=== PATIENT | male | born 1980 | race Caucasian/White ===

== ENCOUNTER → 2022-12-11 10:21 | Outpatient (CLI) | payer SELFPAY ==
[2022-12-11 12:13] LABS: Rubella Antibody IgG 27.9 IU/mL (>15)
[2022-12-12 04:58] LABS: Hepatitis B Surf AB Quant >1000.0 mIU/mL (Immunity>9.9)
[2022-12-12 08:09] LABS: Rubeola Measles IgG < 13.5 AU/mL (Immune >16.4); Varicella IgG Antibody 922 index (Immune >165)
[2022-12-12 13:36] LABS: Mumps Virus IgG Antibody 79.1 AU/mL (Immune >10.9)
[2022-12-15 13:47] LABS: QuantiFERON Mitogen Value >10.00 IU/mL (.); QuantiFERON Nil Value 0.04 IU/mL (.); QuantiFERON TB Gold Plus Negative (Negative); QuantiFERON TB2 Ag Value 0.09 IU/mL (.)
== END ==
DX: Z01.84 Encounter for antibody response examination (principal)
CPT/HCPCS: 36415; 86480; 86706; 86735; 86762; 86765; 86787

== ENCOUNTER → 2023-08-02 08:45 | Outpatient (CLI) | payer OTHER, SELFPAY ==
[2023-08-02 10:05] LABS: Hemoglobin A1C% w Est Avg Glu 5.9 % (4.0-6.0)
[2023-08-02 10:08] LABS: Add Manual Diff / Slide Review NO; Basophils Absolute Auto 0 /uL (0-100); Basophils Percent Auto 0.4 % (0-2); Eosinophils Absolute Auto 100 /uL (0-450); Eosinophils Percent Auto 1.8 % (2-4); Hemoglobin 15.4 g/dL (13.5-17.5); Lymphocytes Absolute Auto 1900 /uL (1100-4500); Lymphocytes Percent Auto 30.7 % (25-40); Mean Corpuscular HGB Conc 34.9 % (30-36); Mean Corpuscular Hemoglobin 31.3 PG (26-34); Mean Corpuscular Volume 89.7 fL (80-100); Monocytes Absolute Auto 500 /uL (0-900); Monocytes Percent Auto 8.4 % (3-14); Neutrophils Absolute Auto 3500 /uL (1500-7000); Neutrophils Percent Auto 58.7 % (50-75); Platelet Count 240 X10^3/uL (150-400); Red Blood Cell Count 4.91 X10^6/uL (4.5-5.9); White Blood Cell Count 6.1 X10^3/uL (4.5-11.0)
[2023-08-02 10:26] LABS: Alanine Aminotransferase 60 IU/L (<50); Albumin 4.9 g/dL (3.5-5.0); Albumin Globulin Ratio 1.6 (1.0-2.8); Alkaline Phosphatase 85 U/L (38-126); Aspartate Aminotransferase 52 IU/L (17-59); Bilirubin Total 0.7 mg/dL (0.2-1.3); Blood Urea Nitrogen 16 mg/dL (9-20); Calcium 9.6 mg/dL (8.4-10.2); Carbon Dioxide 24 mmol/L (22-32); Chloride 109 mmol/L (98-107); Cholesterol 220 mg/dL (140-199); Estimated Glomerular Filt Rate > 60 mL/min (>60); Glucose 100 mg/dL (70-100); HDL Cholesterol 33 mg/dL (40-60); HEMOLYSIS < 15 (0-50); LDL Cholesterol Calculated 137 mg/dL (<100); Potassium 4.4 mmol/L (3.4-5.1); Sodium 142 mmol/L (137-145); Total Protein 7.9 g/dL (6.3-8.2); Triglycerides 250 mg/dL (35-150)
== END ==
PROVIDERS: PCP Family Medicine; Referring Provider Family Medicine; Visit Provider Family Medicine
DX: Z00.00 Encounter for general adult medical examination without abnormal findings (principal); R00.2 Palpitations; L65.9 Nonscarring hair loss, unspecified
CPT/HCPCS: 36415; 80053; 80061; 83036; 85025

== ENCOUNTER → 2023-11-03 06:49 | Outpatient (CLI) | payer OTHER, SELFPAY ==
[2023-11-03 08:09] LABS: Hemoglobin A1C% w Est Avg Glu 5.5 % (4.0-6.0)
[2023-11-03 08:22] LABS: Cholesterol 126 mg/dL (140-199); HDL Cholesterol 31 mg/dL (40-60); LDL Cholesterol Calculated 56 mg/dL (<100); Triglycerides 197 mg/dL (35-150)
[2023-11-03 08:52] LABS: Prostate Specific Antigen Scrn 0.266 ng/mL (0.1-4.0)
== END ==
PROVIDERS: PCP Family Medicine; Referring Provider Family Medicine; Visit Provider Family Medicine
DX: E78.2 Mixed hyperlipidemia (principal); R73.01 Impaired fasting glucose; Z12.5 Encounter for screening for malignant neoplasm of prostate
CPT/HCPCS: 36415; 80061; 83036; G0103

== ENCOUNTER → 2024-01-31 07:36 | Outpatient (CLI) | payer OTHER, SELFPAY ==
--- NOTE | 2024-01-31 07:36 | DI.NM.S_ITS ---
PROCEDURE: NM EXERCISE TREADMILL NON NUC COMPARISON: None. INDICATIONS: chest pain FINDINGS: Patient exercised per the standard Sawyer protocol. Total exercise time was 10 minutes and 3 seconds. Test was terminated secondary to fatigue. Maximal heart rate obtained is 194 bpm which is 111% of max impacted heart rate. Maximum blood pressure was 188/[place] [address]. LINDA +12%. 12.8 METS. No ischemic changes noted. Frequent PVCs noted in the early stress phase but resolved at peak stress. Mild chest pains voiced during the second stage of the stress test with resolution at peak stress. Normal heart rate and blood pressure response to exercise. IMPRESSION: 1. Equivocal exercise treadmill stress test due to presence of exercise-induced chest pain. 2. Below average exercise tolerance. Dictated by: Spencer Madrigal M.D. on 01/31/2024 at 16:51 Approved by: Spencer Madrigal M.D. on 01/31/2024 at 16:53
== END ==
PROVIDERS: PCP Family Medicine; Referring Provider Family Medicine; Visit Provider Family Medicine
DX: R07.89 Other chest pain (principal)
CPT/HCPCS: 93017

== ENCOUNTER → 2024-03-06 09:23 | Outpatient (CLI) | payer OTHER, SELFPAY ==
[2024-03-06 10:35] LABS: Influenza A - CEPHEID Flu A NEGATIVE (NEGATIVE); Influenza B - CEPHEID Flu B NEGATIVE (NEGATIVE); Respiratory Syncytial Virus POSITIVE (Negative)
[2024-03-06 10:36] LABS: COVID-19 CEPHEID 4-PLEX PCR Negative (Negative)
== END ==
PROVIDERS: PCP Family Medicine; Visit Provider Nurse Practitioner Family
DX: R05.1 Acute cough (principal); J02.9 Acute pharyngitis, unspecified
CPT/HCPCS: 0241U; 87070

== ENCOUNTER → 2024-09-01 08:45 | Outpatient (CLI) | payer OTHER, SELFPAY ==
[2024-09-01 10:12] LABS: Alanine Aminotransferase 48 IU/L (<50); Albumin 5.1 g/dL (3.5-5.0); Albumin Globulin Ratio 1.6 (1.0-2.8); Alkaline Phosphatase 103 U/L (38-126); Aspartate Aminotransferase 48 IU/L (17-59); BUN Creatinine Ratio 16.3 (6-22); Bilirubin Total 0.8 mg/dL (0.2-1.3); Blood Urea Nitrogen 14 mg/dL (9-20); Calcium 9.9 mg/dL (8.4-10.2); Carbon Dioxide 24 mmol/L (22-32); Chloride 106 mmol/L (98-107); Cholesterol 150 mg/dL (140-199); Estimated Glomerular Filt Rate > 60 mL/min (>60); Globulin 3.2 g/dL (1.7-4.1); Glucose 108 mg/dL (70-99); HDL Cholesterol 32 mg/dL (40-60); HEMOLYSIS < 15 (0-50); LDL Cholesterol Calculated 84 mg/dL (<100); Potassium 4.8 mmol/L (3.4-5.1); Sodium 140 mmol/L (137-145); Total Protein 8.3 g/dL (6.3-8.2); Triglycerides 168 mg/dL (35-150)
[2024-09-01 10:18] LABS: Hemoglobin A1C% w Est Avg Glu 5.5 % (4.0-6.0)
[2024-09-01 11:11] LABS: HIV 1 & 2 Ab/Ag 4th Gen Combo NEGATIVE (NEGATIVE); Hep C Virus Ab w/Reflex Quant NEGATIVE s/c (NEGATIVE)
[2024-09-01 15:31] LABS: TSH w/ Reflex to FT4 1.04 uIU/mL (0.47-4.68)
== END ==
PROVIDERS: PCP Family Medicine; Referring Provider Family Medicine; Visit Provider Family Medicine
DX: Z00.00 Encounter for general adult medical examination without abnormal findings (principal); Z11.59 Encounter for screening for other viral diseases; Z11.4 Encounter for screening for human immunodeficiency virus [HIV]; E66.9 Obesity, unspecified; R73.01 Impaired fasting glucose; E78.2 Mixed hyperlipidemia
CPT/HCPCS: 36415; 80053; 80061; 83036; 84443; 86803; 87389

== ENCOUNTER → 2025-02-07 05:20 | Outpatient (CLI) | payer OTHER, SELFPAY ==
--- OUTSIDE RECORDS SUMMARY | 2025-02-09 13:08 | XMS_ITS | Clinical Summary ---
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 As noted above, he has significant snoring and witnessed apneas at night. He also has parasomnias in the form of sleep talking, as well as dream enactment which has been described by his as thrashing behavior. In the daytime he can be sleepy and tired and may have some memory issues. On physical exam today he does appear to have quite a tight oral airway. All of the above are highly suggestive of possible PHYLLIS. We talked about the normal physiology of sleep, pathophysiology of PHYLLIS, complications, diagnostic methods, and possible treatment options. I have ordered for an in lab diagnostic study (split-night). I would like to see him back to discuss results. Medical decision making: I discussed that an in-lab sleep study is much more accurate and comprehensive in comparison to a home sleep test. An in-lab sleep study is most appropriate in his case because of the episodes of dream enactment and some of his episodes are potentially injurious to him or his bed partner. Sleep-related movement disorder cannot be evaluated with the use of a portable study. 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 Encounters Date Type Department Care Team Description 02/08/2025 Telephone [facility] [address] [place] [address] David Anderson MD 01/15/2025 11:00 AM PDT Office Visit [facility] [address] [place] [address] David Anderson MD Sleep-related breathing disorder (Primary Dx); Dream enactment behavior; Sleep talking; Excessive daytime sleepiness; Witnessed episode of apnea from Last 3 Months Social History Tobacco Use Types Packs/Day Years Used Date Smoking Tobacco: Unknown Tobacco Cessation:Counseling Given: Not Answered Sex and Gender Information Value Date Recorded Sex Assigned at Not on file Legal Sex Male 9:26 AM PST Gender Identity Not on file Sexual Orientation Not on file Last Filed Vital Signs Vital Sign Reading Time Taken Comments Blood Pressure 135/93 01/15/2025 10:51 AM PDT Pulse 91 01/15/2025 10:51 AM PDT Temperature - - Respiratory Rate - - Oxygen Saturation 96% 01/15/2025 10:51 AM PDT Inhaled Oxygen Concentration - - Weight 107 kg (235 lb 4.8 oz) 01/15/2025 10:51 A M PDT Height - - Body Mass Index - - Plan of Treatment Upcoming Encounters Date Type Department Care Team (Late st Contact Info) Description 04/11/2025 7:30 PM PST Sleep Study [facility] [address] [place] [address] Health Maintenance Due Date Last Done Comments Depression Screening (PHQ-2) 1990 Varicella Vaccines (1 of 2 - 13+ 2-dose series) 08/01/1991 Hepatitis B Vaccines (1 of 3 - 19+ 3-dose series) 1997 Colorectal Cancer Screening (Colonoscopy) 08/01/2023 Colorectal Cancer Screening (FOBT) 08/01/2023 Colorectal Cancer Screening (Fecal DNA) 08/01/2023 Colorectal Cancer Screening Combined 08/01/2023 COVID-19 Vaccine (2 - 2024-2 6 season) 2024 01/28/2023 Influenza Vaccine (#1) 2024 11/04/2022 DTaP,Tdap,and Td Vaccines (2 - Td or Tdap) 12/11/2032 12/11/2022 RSV Patients Over 60 years O R qualifying ( Patients) (1 - 1-dose 75+ series) 2053 MMR Vaccines Completed 01/28/2023, 12/24/2022 HM Pneumococcal Combined Age 0-49 Aged Out No longer eligible b ased on patient's age to complete this topic HPV Vaccines Aged Out No longer eligi ble based on patient's age to complete this topic Hepatitis A Vaccines Aged Out No long er eligible based on patient's age to complete this topic IPV Vaccines Aged Out No longer eligi ble based on patient's age to complete this topic Insurance [place] [address] Care Teams Chartered Accountant Relationship Specialty Start Date End Date Sal Rowley DO [address] [place] [address], [address] [place] [address] [place] [address] PCP - General Family Medicine 01/12/25
--- OUTSIDE RECORDS SUMMARY | 2025-02-09 13:08 | XMS_ITS | Encounter Summary ---
Author Organization [facility] Address [address] [place] [address] Care Team Providers Care House Detective Name Role Phone Sal Rowley DO Primary Care Provider [phone] Reason for Referral * Diagnostic Lab (Routine) - Pending Review Specialty Diagnoses / Procedures Referred By Contivy t Referred To Contact Sleep Medicine Diagnoses Sleep-related breathing disorder Dream enactment behavior Excessive daytime sleepiness Sleep talking Witnessed episode of apnea Procedures Home sleep test David Nye MD [address] [place] [address] Phone: tel: fax: Referral ID Status Reason Start Date Expiration Date V isits Requested Visits Authorized [id number] Pending Review 02/08/2025 02/03/2026 1 1 Encounter Details Date Type Department Care Team (Late Contact Info) Description 02/08/2025 Telephone [facility] [address] [facility] [address] [place] [phone] David Nye MD [address] [place] [address] Social History Tobacco Use Types Packs/Day Years Used Date Smoking Tobacco: Unknown Sex and Gender Information Value Date Recorded Sex Assigned at Not on file Legal Sex Male 9:26 AM PST Gender Identity Not on file Sexual Orientation Not on file documented as of this encounter Miscellaneous Notes * Addendum Note - David Nye MD - 02/08/2025 12:01 PM PSTAddended by: DAVID NYE on: 02/08/2025 12:01 PM Modules accepted: Orders * Telephone Encounter - David Nye MD - 02/08/2025 11:57 AM PST Spoke with Dr. Ballesteros for the peer to peer. She will approve a type III (home sleep test). She states that in-lab may be approved if the dream enactment episodes persist after PAP therapy. documented in this encounter Plan of Treatment Upcoming Encounters Date Type Department Care Team (Late st Contact Info) Description 04/11/2025 7:30 PM PST Sleep Study [facility] [address] [place] [phone] Scheduled Orders Name Type Priority Associated Diagnoses Orde r Schedule Home sleep test Sleep Center Routine Sleep-related breathing disorder Dream enactment behavior Excessive daytime sleepiness Sleep talking Witnessed episode of apnea 1 Occurrences starting 02/08/2025 until 02/08/2026 documented as of this encounter Visit Diagnoses Diagnosis Sleep-related breathing disorder- Primary Dream enactment behavior Excessive daytime sleepiness Sleep talking Other dysfunctions of sleep stages or arousal from sleep Witnessed episode of apnea documented in this encounter Care Teams House Detective Relationship Specialty Start Date End Date Sal Rowley DO [address] [place] [address], [address] [place] [address] [place] [address] PCP - General Family Medicine 01/12/25 documented as of this encounter
== END ==
LOC: CAR 05:20
PROVIDERS: PCP Family Medicine; Referring Provider Family Medicine; Visit Provider Family Medicine
DX: R00.0 Tachycardia, unspecified (principal)
CPT/HCPCS: 93242